=== PATIENT | male | born 1975 | race Caucasian/White ===

== ENCOUNTER 2016-06-03 16:55 | Emergency (ER) | payer OTHER ==
[~2016-06-03] VITALS: Ht 172.7 cm; Wt 95.7 kg
[2016-06-03 19:12] LABS: BASOPHIL % 0.6 % (0-2); PLATELET COUNT 206 x10^3mcL (130-400); RED CELL DISTRIBUTION WIDTH 14.4 % (11.5-14.5)
[2016-06-03 19:24] LABS: CALCIUM 8.3 mg/dL (8.5-10.1); CARBON DIOXIDE 31.6 mmol/L (21-32); CREATININE SERUM 1.6 mg/dL (0.7-1.3); POTASSIUM SERUM 3.6 mmol/L (3.5-5.1)
[2016-06-03 19:28] LABS: BILIRUBIN TOTAL 0.4 mg/dL (0.20-1.00); MAGNESIUM 1.9 mg/dL (1.8-2.4)
[2016-06-03 19:54] LABS: ALBUMIN 3.3 g/dL (3.4-5.0)
[2016-06-03 21:25] LABS: UA SPECIFIC GRAVITY 1.025 (1.005-1.035); microscopic required? YES; urine erythrocyte 1+ (NEGATIVE)
[2016-06-03 22:30] VITALS: BP 165/88
== END 2016-06-03 22:30 | disposition home or self-care (01) ==
LOC: ED 16:55
PROVIDERS: Emergency Medicine
DX: I10 Essential (primary) hypertension (principal); E11.9 Type 2 diabetes mellitus without complications; E78.5 Hyperlipidemia, unspecified; Z79.84 Long term (current) use of oral hypoglycemic drugs
CPT/HCPCS: 82962; 83880; J3490